=== PATIENT | male | born 1945 | race Two or more races ===

== ENCOUNTER 2022-04-26 08:24 | Inpatient (IN) | payer OTHER, BC ==
[~2022-04-26] VITALS: Ht 182.9 cm; Wt 65.8 kg
[2022-04-26] MEDS ORDERED: RAYOS5 MG PO (09:12)
[2022-04-26] MEDS ORDERED: ESCITALOPRA5 MG/5 ML PO (09:12)
[2022-04-26] MEDS ORDERED: LAMOTRIGINE25 MG PO (09:13)
[2022-04-26] MEDS ORDERED: ZOLPIDEM TARTR3.5 MG SL (09:13)
[2022-04-26] MEDS ORDERED: GABAPENTIN100 M2 PO (09:14)
[2022-04-26] MEDS ORDERED: PERCOCET 10-321 EACH (09:14)
== END 2022-04-29 19:18 | disposition home or self-care (01) | DRG 690 ==
LOC: ER 08:24 → MEDJ 21:26 → SEC-K 21:26 → MEDJ 04-27 10:09
PROVIDERS: ADMIT Internal Medicine; ATTEND Internal Medicine
PROC: 0T9B70Z Drainage of Bladder with Drainage Device, Via Natural or Artificial Opening (ICD-10-PCS; principal; 2022-04-26)
PROC: 30233N1 Transfusion of Nonautologous Red Blood Cells into Peripheral Vein, Percutaneous Approach (ICD-10-PCS; 2022-04-27)
PROC: 4A12X45 Monitoring of Cardiac Electrical Activity, Ambulatory, External Approach (ICD-10-PCS; 2022-04-27)
DX: N13.6 Pyonephrosis (principal); D62 Acute posthemorrhagic anemia; C61 Malignant neoplasm of prostate; D63.8 Anemia in other chronic diseases classified elsewhere; R31.0 Gross hematuria; R33.8 Other retention of urine; Z85.038 Personal history of other malignant neoplasm of large intestine